=== PATIENT | male | born 1950 | race Two or more races ===

== ENCOUNTER 2018-07-07 08:17 | Outpatient (CLI) | payer OTHER | END 2018-07-07 08:22 | disposition home or self-care (01) | LOC: SONOGRAMA 08:17 | DX: E04.2 Nontoxic multinodular goiter (principal) ==

== ENCOUNTER 2021-12-26 10:15 | Inpatient (IN) | payer OTHER ==
[~2021-12-26] VITALS: Ht 172.7 cm; Wt 76.2 kg
[2021-12-26] MEDS ORDERED: LEVOTHYROXINE25 MCG PO (14:10)
[2021-12-30] MEDS ORDERED: OMEPRAZOLE40 MG (08:36)
[2021-12-30] MEDS ORDERED: FAMOTIDINE40 MG (08:36)
[2021-12-30] MEDS ORDERED: SYNTHROID88 MCG (08:36)
== END 2022-01-09 20:39 | disposition home or self-care (01) | DRG 330 ==
LOC: SURH 12-30 06:38 → O/R 12-30 06:38 → SURH 12-30 10:15
PROVIDERS: ADMIT Surgery; ATTEND Surgery
PROC: 07BB4ZZ Excision of Mesenteric Lymphatic, Percutaneous Endoscopic Approach (ICD-10-PCS; 2021-12-30)
PROC: 0DTF4ZZ Resection of Right Large Intestine, Percutaneous Endoscopic Approach (ICD-10-PCS; principal; 2021-12-30 13:00)
PROC: BW21YZZ Computerized Tomography (CT Scan) of Abdomen and Pelvis using Other Contrast (ICD-10-PCS; 2022-01-05)
DX: C18.2 Malignant neoplasm of ascending colon (principal); K62.5 Hemorrhage of anus and rectum; K56.699 Other intestinal obstruction unspecified as to partial versus complete obstruction; R59.0 Localized enlarged lymph nodes; K59.09 Other constipation; R14.0 Abdominal distension (gaseous); D50.9 Iron deficiency anemia, unspecified; Z20.822 Contact with and (suspected) exposure to COVID-19

== ENCOUNTER 2022-02-06 07:20 | Day surgery (SDC) | payer OTHER ==
[~2022-02-06] VITALS: Ht 172.7 cm; Wt 68.9 kg
[~2022-02-06 07:20] MED LIST: FAMOTIDINE40 MG; LEVOTHYROXINE25 MCG PO; OMEPRAZOLE40 MG; SYNTHROID88 MCG
[2022-02-06] MEDS ORDERED: ULTRACET PO (15:46)
== END 2022-02-06 17:49 | disposition home or self-care (01) ==
LOC: CIR.AMB 07:20
PROVIDERS: ATTEND Surgery
DX: C18.2 Malignant neoplasm of ascending colon (principal); K62.5 Hemorrhage of anus and rectum; K59.09 Other constipation; I10 Essential (primary) hypertension; E06.3 Autoimmune thyroiditis; N40.0 Benign prostatic hyperplasia without lower urinary tract symptoms; D63.0 Anemia in neoplastic disease; Z20.822 Contact with and (suspected) exposure to COVID-19

== ENCOUNTER 2023-10-18 08:01 | Outpatient (CLI) | payer OTHER ==
[~2023-10-18 08:01] MED LIST changes: +ULTRACET PO
== END 2023-10-18 08:11 | disposition home or self-care (01) ==
LOC: NUCLEAR 08:01
PROVIDERS: ATTEND Surgery
DX: I25.10 Atherosclerotic heart disease of native coronary artery without angina pectoris (principal); I11.9 Hypertensive heart disease without heart failure
CPT/HCPCS: 78452; 93017; A9500; J0153